=== PATIENT | female | born 1960 | race Two or more races ===

== ENCOUNTER 2017-03-24 18:15 | Emergency (ER) | payer OTHER ==
[~2017-03-24] VITALS: Ht 160 cm; Wt 72.6 kg
[~2017-03-24 18:15] MED LIST: ASPI-231 PO; CHOL500021 OR; HYDR-1421 PO; PANTPAK PO; [UNRECOGNIZED DRUG - OTHER] PO
[2017-03-24 18:21] VITALS: BP 149/96
[2017-03-24 18:57] LABS: Basophils # (auto) 0.1 uL; Basophils % (auto) 1.3 % (0.0-2.0); Eosinophils # (auto) 0.1 uL; Hematocrit 41.1 % (36.0-46.0); Hemoglobin 14.2 g/dL (12.2-16.2); Lymphocytes # (auto) 2.8 uL; Lymphocytes % (auto) 52.3 % (10.0-50.0); Mean Corpuscular Hemoglobin 31.7 pg (28.0-32.0); Mean Corpuscular Hgb Conc. 34.5 g/dL (32.0-36.0); Mean Platelet Volume 7.4 fL (6.9-10.8); Monocytes # (auto) 0.4 uL; Monocytes % (auto) 6.7 % (0.0-12.0); Neutrophils % (auto) 37.7 % (37.0-80.0); Nucleated Red Blood Cells % 0.2 %; Platelet Count (auto) 202 10^3/uL (140-450); Red Cell Distribution Width 13.5 % (11.8-14.3); White Blood Cell 5.3 10^3/uL (4.4-10.8)
[2017-03-24 19:33] LABS: Albumin 3.8 g/dL (3.4-5.0); Alkaline Phosphatase 76 U/L (45-117); Anion Gap 8 (5-15); Aspartate Aminotransferase 14 U/L (15-37); BUN/Creatinine Ratio 19.4; Bilirubin, Total 0.3 mg/dL (0.2-1.0); Blood Urea Nitrogen 14 mg/dL (7-18); Calcium 8.9 mg/dL (8.5-10.1); Carbon Dioxide 26 mmol/L (21-32); Chloride 108 mmol/L (98-107); GFR African American 108 mL/min; GFR Non-African American 89 mL/min; Glucose 100 mg/dL (74-106); Magnesium 2.4 mg/dL (1.6-2.6); Sodium 142 mmol/L (136-145); Total Protein 7.5 g/dL (6.4-8.2)
[2017-03-24 19:57] LABS: Urine Bilirubin Negative (Negative); Urine Blood Negative /uL (Negative); Urine Color Yellow (Yellow); Urine Glucose Normal (Normal); Urine Ketone Negative (Negative); Urine Mucus FEW (None Seen); Urine Nitrite Negative (Negative); Urine RBC 6 /hpf (0 - 4); Urine Squamous Epithelial Cell FEW /hpf (<5); Urine Urobilinogen Normal (Negative); Urine pH 5.5 (5.0-8.0)
== END 2017-03-25 00:25 | disposition left against medical advice (07) ==
LOC: ER 18:15
DX: R20.2 Paresthesia of skin (principal); Z53.21 Procedure and treatment not carried out due to patient leaving prior to being seen by health care provider
CPT/HCPCS: 36415; 71010; 80053; 81001; 83735; 84484; 85025

== ENCOUNTER → 2023-10-29 | Outpatient (CLI) | payer OTHER ==
[~2023-10-29] MED LIST changes: -ASPI-231 PO; +ASPI1TAB20 PO
[2023-10-29 11:36] LABS: Potassium 4.2 mmol/L (3.5-5.1)
[2023-10-29 11:37] LABS: Calcium 9.4 mg/dL (8.5-10.1)
[2023-10-29 11:42] LABS: BUN/Creatinine Ratio 16.7 (10.0-20.0)
[2023-10-29 11:44] LABS: Albumin 4.2 g/dL (3.2-4.8); Phosphorus 3.7 mg/dL (2.4-5.1)
== END | disposition home or self-care (01) ==
LOC: LAB 11:01
PROVIDERS: ATTEND Family Medicine
DX: Z79.899 Other long term (current) drug therapy (principal)
CPT/HCPCS: 36415; 80069

== ENCOUNTER 2023-11-18 09:54 | Inpatient (IN) | payer OTHER ==
[~2023-11-18] VITALS: Ht 160 cm; Wt 75.0 kg
[2023-11-18] MEDS: DONNATAL 5ml ORAL Elix (BELLADONNA ALK-PHENOBARB) PO ONE (10:00)
[2023-11-18 10:30] LABS: Basophils # (auto) 0.1 10 ^3/uL (0-0.2); Basophils % (auto) 0.9 % (0.0-2.0); Eosinophils # (auto) 0.2 10 ^3/uL (0-0.8); Eosinophils % (auto) 3.7 % (0.0-7.0); Hemoglobin 15.1 g/dL (12.2-16.2); Lymphocytes # (auto) 1.9 10 ^3/uL (0.4-5.4); Lymphocytes % (auto) 32.2 % (10.0-50.0); Mean Corpuscular Hemoglobin 31.3 pg (28.0-32.0); Mean Corpuscular Hgb Conc. 34.3 g/dL (32.0-36.0); Mean Corpuscular Volume 91.3 fL (80.0-100.0); Monocytes # (auto) 0.4 10 ^3/uL (0-1.3); Monocytes % (auto) 6.1 % (0.0-12.0); Neutrophils # (auto) 3.4 10 ^3/uL (1.6-8.6); Neutrophils % (auto) 57.1 % (37.0-80.0); Nucleated Red Blood Cells % 0.1 %; Red Blood Cells 4.82 10^6/uL (4.0-5.20); Red Cell Distribution Width 13.9 % (11.8-14.3); White Blood Cell 5.9 10^3/uL (4.4-10.8)
[2023-11-18 10:55] LABS: Alanine Aminotransferase 19 U/L (7-40); Albumin 4.4 g/dL (3.2-4.8); Alkaline Phosphatase 80 U/L (46-116); Anion Gap 5 (5-15); Aspartate Aminotransferase 16 U/L (13-40); BUN/Creatinine Ratio 15.9 (10.0-20.0); Blood Urea Nitrogen 11 mg/dL (9-23); Calcium 9.4 mg/dL (8.7-10.4); Carbon Dioxide 24 mmol/L (20-30); Chloride 110 mmol/L (98-107); Glucose 135 mg/dL (74-106); Magnesium 1.9 mg/dL (1.6-2.6); Potassium 4.4 mmol/L (3.5-5.1); Sodium 139 mmol/L (136-145)
[2023-11-18 10:56] LABS: Bilirubin, Total 0.4 mg/dL (0.2-1.0); Total Protein 6.8 g/dL (5.7-8.2)
[2023-11-18 11:00] LABS: Partial Thromboplastin Time 25.9 SEC (24.5-34.5); Prothrombin Time 10.6 sec (9.3-11.8)
[2023-11-18] MEDS: ONDANSETRON ODT 4 MG TAB PO ONE (11:01)
[2023-11-18] MEDS: LIDOCAINE VISCOUS 2% 15ML UD PO ONE (11:02)
[2023-11-18] MEDS: MAALOX PLUS or MAALOX 30 ML PO ONE (11:02)
[2023-11-18] MEDS: NITROGLYCERIN 2% OINT 1GM PKG TD ONE (11:15)
[2023-11-18 12:00] VITALS: PULSE 89; RESP 19; O2SAT 96
[2023-11-18] MEDS: ASPirin 325 MG TAB PO ONE (12:43)
[2023-11-18] MEDS ORDERED: MORPHINE SULFATE 4 MG/ML SYR/VIAL IV PRN (13:00)
[2023-11-18] MEDS ORDERED: ONDANSETRON HCL 4 MG/2 ML VIAL IV PRN (13:00)
[2023-11-18] MEDS ORDERED: NITROGLYCERIN 0.4 MG SL TAB SL PRN ×2 (13:00)
[2023-11-18] MEDS ORDERED: MORPHINE SULFATE INJ 2 MG/ml SYRG IV PRN (13:00)
[2023-11-18 13:45] LABS: Triglycerides 186 mg/dL (< 150)
[2023-11-18 13:46] LABS: LDL Cholesterol 117 mg/dL (< 100)
[2023-11-18 13:47] LABS: Cholesterol 176 mg/dL (< 200); HDL Cholesterol 41 mg/dL (40-59)
[2023-11-18 14:08] LABS: Lipase 27 U/L (12-53)
[2023-11-18] MEDS: DICYCLOMINE HCL 10 MG CAP PO ONE (15:58)
[2023-11-18] MEDS: PANTOPRAZOLE 40 MG/10 ML VIAL INJ IV ONE (15:58)
[2023-11-18] MEDS: ACETAMINOPHEN 325 MG TAB PO PRN (15:59)
[2023-11-18] MEDS: DICYCLOMINE HCL 10 MG CAP PO SCH (18:00)
[2023-11-18 21:30] VITALS: BP 141/80; PULSE 58; RESP 18; TEMP 97.8; O2SAT 93
[2023-11-18] MEDS ORDERED: METO-158 PO (21:46)
[2023-11-18] MEDS: ATORVASTATIN 20 MG TAB PO SCH (22:24)
[2023-11-18] MEDS: METOPROLOL TARTRATE 25 MG TAB PO SCH (22:25)
[2023-11-19] VITALS (7 sets, daily range): BP systolic 116–136; BP diastolic 58–70; PULSE 60–83; RESP 15–20; TEMP 36.3; O2SAT 91–97
[2023-11-19 05:56] LABS: Basophils # (auto) 0 10 ^3/uL (0-0.2); Basophils % (auto) 0.6 % (0.0-2.0); Eosinophils # (auto) 0.3 10 ^3/uL (0-0.8); Eosinophils % (auto) 5.1 % (0.0-7.0); Hematocrit 41.2 % (36.0-46.0); Hemoglobin 14.2 g/dL (12.2-16.2); Lymphocytes # (auto) 2.5 10 ^3/uL (0.4-5.4); Lymphocytes % (auto) 48.1 % (10.0-50.0); Mean Corpuscular Hemoglobin 31.4 pg (28.0-32.0); Mean Corpuscular Hgb Conc. 34.5 g/dL (32.0-36.0); Mean Corpuscular Volume 90.9 fL (80.0-100.0); Monocytes # (auto) 0.3 10 ^3/uL (0-1.3); Monocytes % (auto) 6.8 % (0.0-12.0); Neutrophils % (auto) 39.4 % (37.0-80.0); Red Blood Cells 4.53 10^6/uL (4.0-5.20); Red Cell Distribution Width 13.5 % (11.8-14.3); White Blood Cell 5.2 10^3/uL (4.4-10.8)
[2023-11-19 06:16] LABS: Alanine Aminotransferase 17 U/L (7-40); Alkaline Phosphatase 69 U/L (46-116); Anion Gap 5 (5-15); Aspartate Aminotransferase 15 U/L (13-40); BUN/Creatinine Ratio 18.3 (10.0-20.0); Blood Urea Nitrogen 13 mg/dL (9-23); Calcium 9.2 mg/dL (8.7-10.4); Carbon Dioxide 27 mmol/L (20-30); Chloride 110 mmol/L (98-107); Glucose 90 mg/dL (74-106); Potassium 4.4 mmol/L (3.5-5.1); Sodium 142 mmol/L (136-145)
[2023-11-19 06:18] LABS: Albumin 3.8 g/dL (3.2-4.8); Bilirubin, Total 0.5 mg/dL (0.2-1.0); Total Protein 6.1 g/dL (5.7-8.2)
[2023-11-19 08:32] LABS: Magnesium 2.1 mg/dL (1.6-2.6)
[2023-11-19] MEDS: ASPirin-EC 81 mg tab PO SCH (10:00)
[2023-11-19] MEDS: DOCUSATE SOD 100 MG CAP PO SCH (10:00)
[2023-11-19] MEDS: PANTOPRAZOLE 40 MG/10 ML VIAL INJ IV SCH (11:09)
[2023-11-19] MEDS: CLOPIDOGREL BISULFATE 75 MG TAB PO SCH (11:10)
[2023-11-19] MEDS ORDERED: CIPROFLOXACIN 400MG/200ML 200 ML IV ONE (14:15)
[2023-11-19] MEDS ORDERED: METR-344 PO (16:18)
[2023-11-19] MEDS ORDERED: CIPR500T4 PO (16:18)
[2023-11-19] MEDS: metroNIDAZOLE 500MG/100ML 100 ML IV ONE (16:43)
[2023-11-19] MEDS: HYDROcodone-ACET 5/325MG TAB PO PRN (16:55)
[2023-11-19] MEDS ORDERED: CIPR-173 PO (16:57)
[2023-11-19] MEDS ORDERED: CIPROFLOXACIN 400MG/200ML 200 ML IV SCH (22:00)
[2023-11-19] MEDS ORDERED: metroNIDAZOLE 500MG/100ML 100 ML IV SCH (22:00)
[2023-11-19] MEDS ORDERED: METOPROLOL TARTRATE 25 MG TAB PO SCH (22:00)
== END 2023-11-19 18:55 | disposition home or self-care (01) | DRG 392 ==
LOC: ER 09:54 → TELE 12:55 → TELE-WESTW 21:33
PROVIDERS: ADMIT Internal Medicine Pulmonary Disease; ATTEND Internal Medicine Pulmonary Disease
DX: K52.9 Noninfective gastroenteritis and colitis, unspecified (principal); I50.32 Chronic diastolic (congestive) heart failure; I11.0 Hypertensive heart disease with heart failure; R07.89 Other chest pain; Z88.6 Allergy status to analgesic agent; Z95.0 Presence of cardiac pacemaker; Z90.710 Acquired absence of both cervix and uterus; Z87.891 Personal history of nicotine dependence; Z82.5 Family history of asthma and other chronic lower respiratory diseases; Z82.49 Family history of ischemic heart disease and other diseases of the circulatory system; Z83.3 Family history of diabetes mellitus; Z82.3 Family history of stroke
CPT/HCPCS: 36415; 71045; 74176; 80053; 80061; 83036; 83690; 83735; 83880; 84443; 84484; 85025; 85610; 85730; 93005; 93306; 96374; G0378; J2470; J3490; Q0162